=== PATIENT | female | born 1995 | race Two or more races ===

== ENCOUNTER 2016-08-31 23:59 | Emergency (ER) | payer OTHER, BC | END 2016-09-01 02:14 | disposition home or self-care (01) | LOC: ER 23:59 | DX: S16.1XXA Strain of muscle, fascia and tendon at neck level, initial encounter (principal); M54.5 Low back pain; V44.6XXA Car passenger injured in collision with heavy transport vehicle or bus in traffic accident, initial encounter; Y92.410 Unspecified street and highway as the place of occurrence of the external cause | CPT/HCPCS: 72040; 72100; 96372; 99284; A9270-GY; J2360 ==